=== PATIENT | male | born 1975 | race Caucasian/White ===

== ENCOUNTER 2017-02-23 17:34 | Emergency (ER) | payer BC, OTHER ==
[~2017-02-23] VITALS: Ht 188 cm; Wt 119.2 kg
[~2017-02-23 17:34] MED LIST: CLIN150 PO
[2017-02-23 17:52] VITALS: BP 160/114; PULSE 93; RESP 16; TEMP 98.6; O2SAT 97
[2017-02-23] MEDS ORDERED: CLIN1CAP5 PO (18:24)
--- NOTE | 2017-02-23 18:24 | PD ---
HPI Chief Complaint: Oral / Dental Pain or Problem Time Seen by Provider: 18:13 Travel History International Travel<30 days: No Contact w/Intl Traveler<30days: No Traveled to known affect area: No History of Present Illness HPI 41-year-old male here for evaluation of right upper dental pain and right facial swelling. Symptoms started yesterday. Swelling increased today. 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 He states that since this time his teeth have been progressively getting worse and worse. He denies fevers. No difficulty breathing or swallowing. PFSH Past Medical History Cerebrovascular Accident: No Diabetes: No Diminished Hearing: No Immunizations Current: Yes Myocardial Infarction: No Tetanus Vaccination: < 5 Years Past Surgical History Endocrine Surgery: Yes (Parotidectomy) Other Surgery: Yes (Abscess perineum) Social History Alcohol Use: Yes (Occ.) Tobacco Use: Yes (10/06 PPD) Substance Use: No Allergies-Medications (Allergen,Severity, Reaction): Coded Allergies: Amoxicillin (Verified Allergy, Severe, THROAT SWELLING, 02/23/17) Penicillin (Verified Allergy, Severe, THROAT SWELLING, 02/23/17) Reported Meds & Prescriptions Reported Meds & Active Scripts Active Clindamycin (Clindamycin HCl) 150 Mg Cap 450 Mg PO Q6H 10 Days Review of Systems Except as stated in HPI: all other systems reviewed are Neg Physical Exam Narrative GENERAL: Pleasant, well-developed, well-nourished, comfortable, no acute distress. HEAD: Moderate right cheek and facial swelling with moderate tenderness. EYES: Pupils equal and round. ENT: Very poor dentition. Moderate right cheek and facial swelling. No sublingual edema. No drooling or stridor. CARDIOVASCULAR: Regular rate and rhythm. NEUROLOGICAL: Awake and alert. No obvious cranial nerve deficits. Motor grossly within normal limits. Normal speech. PSYCHIATRIC: Appropriate mood and affect; insight and judgment normal. Data Data Last Documented VS Vital Signs Date Time Temp Pulse Resp B/P Pulse Ox O2 Delivery O2 Flow Rate FiO2 02/23/17 17:52 98.6 93 16 160/114 97 Orders Clindamycin (Cleocin) (02/23/17 18:30) [facility] Medical Decision Making Medical Screen Exam Complete: Yes Emergency Medical Condition: Yes Differential Diagnosis Dental abscess, dental infection, dental caries Narrative Course Patient has very poor dentition with right cheek swelling. There is no sublingual swelling. No submental edema or induration. I offered to perform nerve block, however the patient states that the pain is not that bad. He tried to follow-up with a dentist today, but was unable to do so. He will be discharged home with a prescription for antibiotics. I encouraged him to follow up with a dentist this and is he is able to. He was informed on when to return to the emergency department. He verbalizes understanding and agreement with plan. Diagnosis Primary Impression: Dental infection Referrals: Dentist 1 day Additional Instructions: Follow-up with a dentist this week. Take antibiotic as prescribed. Return to the emergency department for worsening symptoms or any other concerns. Scripts Tramadol 50 Mg Tab50 Mg PO Q6H PRN (PAIN) #10 TAB Ref 0 Prov:Alan Bridges MD 02/23/17 Clindamycin 150 Mg [id number] Mg PO Q6H 10 Days Ref 0 Prov:Alan Bridges MD 02/23/17 Disposition: 01 DISCHARGE HOME Condition: Stable Alan Bridges MD February 23, 2017 18:24
[2017-02-23] MEDS ORDERED: TRAM50TA PO (18:27)
[2017-02-23] MEDS ORDERED: CLINDAMYCIN 150 MG CAP PO ONE (18:30)
== END 2017-02-23 18:34 | disposition home or self-care (01) ==
LOC: PHED 17:34 → PHEFT 18:34
DX: K04.7 Periapical abscess without sinus (principal); F17.210 Nicotine dependence, cigarettes, uncomplicated
CPT/HCPCS: 99284